=== PATIENT | male | born 1960 | race Caucasian/White ===

== ENCOUNTER 2023-09-01 07:09 | Emergency (ER) | payer OTHER, SELFPAY ==
--- NOTE | 2023-09-01 07:02 | ECG_ITS ---
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 Measurements Intervals Benedict Rate: 61 P: 51 NJ: 183 QRS: 31 QRSD: 101 T: 171 QT: 416 QTc: 421 Interpretive Statements SINUS RHYTHM POSSIBLE LEFT ATRIAL ENLARGEMENT [-0.1mV P-WAVE IN V1/V2] INCOMPLETE RIGHT BUNDLE BRANCH BLOCK [90+ ms QRS DURATION, TERMINAL R IN V1/V2, 40+ ms S IN I/aVL/V4/V5/V6] MODERATE T-WAVE ABNORMALITY, CONSIDER ANTEROLATERAL ISCHEMIA [-0.1+ mV T-WAVE IN V3-V6] MODERATE T-WAVE ABNORMALITY, CONSIDER INFERIOR ISCHEMIA [-0.1+ mV T-WAVE IN II/aVF] INTERPRETATION BASED ON A DEFAULT AGE OF 40 YEARS No previous ECG available for comparison Electronically Signed On 09-01-2023 21:25:59 CDT by Darrel Perla M.D. [id number]
--- NOTE | 2023-09-01 07:13 | XRR_ITS ---
PROCEDURE INFORMATION: Exam: XR Chest Exam date and time: 09/01/2023 7:30 AM Age: 63 years old Clinical indication: Cough and dyspnea; Additional info: Dyspnea/cough TECHNIQUE: Imaging protocol: Radiologic exam of the chest. Views: 1 view. COMPARISON: No relevant prior studies available. FINDINGS: Lungs: There may be minimal central vascular congestion. No focal consolidation is appreciated. Pleural spaces: Unremarkable. No pleural effusion. No pneumothorax. Heart/Mediastinum: The heart is enlarged. Bones/joints: Unremarkable. XR/XR chest 1V portable [id number] IMPRESSION: 1. Cardiomegaly. 2. Possible mild central vascular congestion.
[2023-09-01 07:19] LABS: ABG PCO2 24.2 mmHg (35-45); ABG PH Result 7.55 (7.35-7.45); Alveolar-Arterial Oxygen Gradi 2.5 mmHg (5-10); Arterial Blood Gas Hematocrit 46.9 % (42-52); Base Excess ABG 0.9 mmol/L (-2.0-2.0); Blood Gas Allen Test Pos; Blood Gas Operator Identificat WALCI; Blood Gas Sample Site Radial, right; Blood Gas Sample Type Arterial; Carboxyhemoglobin 0.6 %THgb (0.4-20.1); HCO3 ABG 21.3 mmol/L (22-26); HGB O2 Sat 97.5 % (95-100); Ionized Calcium Level - ABG 1.2 mmol/L (1.1-1.4); Methemoglobin 1.1 % (0.4-1.5); Oxygen Device ROOM AIR; Oxygen Saturation ABG 99.1; PO2 ABG 97.9 mmHg (80.0-100.0); PO2 FiO2 Ratio Arterial Blood 466; Potassium Level - ABG 3.4 mmol/L (3.5-5.0); Total Hemoglobin 15.3 g/dL (14-18)
[2023-09-01 07:23] LABS: Basophils # 0.1 10^3/uL (0.0-0.1); Basophils % 1.3 %; Eosinophils # 0.1 10^3/uL (0.0-0.8); Eosinophils % 1.5 %; Hematocrit 47.3 % (37-53); Lymphocytes # 2.1 10^3/uL (0.8-4.8); Lymphocytes % 27.6 %; Mean Corpuscular HGB Conc 33.2 g/dL (30-55); Mean Corpuscular Hemoglobin 31.7 pg (27-33); Mean Corpuscular Volume 95.6 fl (82-101); Mean Platelet Volume 11.7 fL (7.4-10.4); Monocytes # 0.6 10^3/uL (0.2-0.9); Monocytes % 7.8 %; Neutrophils # 4.62 10^3/uL (1.8-7.7); Neutrophils % 61.4 %; Nucleated Red Blood Cells % 0 %; Platelet Count 196 10^3/cmm (157-399); Red Blood Count 4.95 10^6/uL (3.85-5.65); Red Cell Distribution Width 13.5 % (12.1-15.1); White Blood Count 7.53 10^3/uL (3.29-11.43)
[2023-09-01 07:25] VITALS: BP 148/80; PULSE 56; RESP 18; TEMP 36.7; O2SAT 97; BMI 39.5
--- NOTE | 2023-09-01 07:28 | ED_ITS ---
HPI - General Adult 2 General: Chief complaint: General Medical Stated complaint: SOB Time Seen by Provider: 09/01/23 07:12 Source: patient Mode of arrival: ambulatory History of Present Illness: 63-year-old male presents emergency room with complaints of shortness of breath. Patient states he has been out in the heat he is repeatedly states he is dehydrated. He denies chest pain or abdominal pain. Tells me he has impaired glucose tolerance. No history of coronary artery disease. No recent trauma or falls no shortness of breath no abdominal or chest pain. Onset (ago): minute(s) Associated symptoms: Deny chest pain, confusion, cough, diaphoresis, decreased appetite, dyspnea, fevers/chills, headache(s), malaise, nausea, rash, palpitations, seizures, short of breath, syncope, vomiting or weakness Treatments prior to arrival: none Review of Systems 2 Const: Denies: fever(s), chills, malaise or diaphoresis Card: Denies: chest pain, palpitations or syncope Resp: Denies: dyspnea GI: Denies: abdominal pain, nausea or vomiting : Denies: dysuria, urinary frequency or urinary urgency Musc: Denies: neck pain or back pain Skin/Breast: Denies: rash Neuro: Denies: headache(s) or confusion Physical Exam 2 Const: GENERAL APPEARANCE: cooperative and anxious O RIENTATION/CONSCIOUSNESS: Yes awake, Yes oriented to person, Yes oriented to place and Yes oriented to time HENMT: COMMON NORMALS: normocephalic, atraumatic and hearing grossly normal bilaterally HEAD & SCALP: normocephalic and atraumatic Resp: COMMON NORMALS: normal respiratory effort, No retractions and clear to auscultation bilaterally EFFORT & INSPECTION: No able to speak in complete sentences and Yes tachypneic AUSCULTATION: clear to auscultation bilaterally Cardio: COMMON NORMALS: regular rate, regular rhythm and No murmurs present (Cardio) RATE: regular rate RHYTHM: regular rhythm GI: COMMON NORMALS: Soft to palpation and No hepatosplenomegaly present A USCULTATION: Yes normoactive bowel sounds PALPATION: Yes Soft to palpation, No Tenderness to palpation present (GI), No Guarding due to palpation present (GI) and Yes No hepatosplenomegaly present Extremity: COMMON NORMALS: normal to inspection, capillary refill normal, no clubbing, cyanosis or edema, no calf tenderness and no pedal edema Neuro: SENSORIUM/ORIENTATION: Yes oriented to person, Yes oriented to place and Yes oriented to time Skin: COMMON NORMALS: no rashes or lesions noted GENERAL SKIN EXAM: no rashes or lesions noted Course 2 Vital Signs: Vital signs: Vital Signs Temperature 98.1 F 09/01/23 07:25 Pulse Rate 63 09/01/23 09:08 Respiratory Rate 18 09/01/23 07:41 Blood Pressure 143/77 09/01/23 09:08 Pulse Oximetry 98 09/01/23 09:08 Oxygen Delivery Me thod Room Air 09/01/23 09:08 MDM - General Adult Medical Decision Making Patient presents appears to be hyperventilating EKG does not show any acute changes ABG confirms hyperventilation cardiac enzymes and EKG normal discussed findings with patient he states he has had episodes like this in the past will discharge home have him follow-up with his primary care regarding medications for anxiety. Medical Records I reviewed the patient's medical records. Lab Data I reviewed the patient's lab results. 09/01/23 07:16 09/01/23 07:16 Radiology Impressions Chest X-Ray 09/01/23 07:13 IMPRESSION: 1. Cardiomegaly. 2. Possible mild central vascular congestion. Laboratory Results WBC 7.53 10^3/uL (3.29-11.43) 09/01/23 07:16 RBC 4.95 10^6/uL (3.85-5.65) 09/01/23 07:16 Hgb 15.70 g/dL (11.27-16.99) 09/01/23 07:16 Hct 47.3 % (37-53) 09/01/23 07:16 MCV 95.6 fl (82-101) 09/01/23 07:16 MCH 31.7 pg (27-33) 09/01/23 07:16 MCHC 33.2 g/dL (30-55) 09/01/23 07:16 RDW 13.5 % (12.1-15.1) 09/01/23 07:16 Plt Count 196 10^3/cmm (157-399) 09/01/23 07:16 MPV 11.7 fL (7.4-10.4) H 09/01/23 07:16 Neut % (Auto) 61.4 % 09/01/23 07:16 Lymph % (Auto) 27.6 % 09/01/23 07:16 [place] % (Auto) 7.8 % 09/01/23 07:16 Eos % (Auto) 1.5 % 09/01/23 07:16 Baso % (Auto) 1.3 % 09/01/23 07:16 Neut # (Auto) 4.62 10^3/uL (1.8-7.7) 09/01/23 07:16 Lymph # (Auto) 2.1 10^3/uL (0.8-4.8) 09/01/23 07:16 [place] # (Auto) 0.6 10^3/uL (0.2-0.9) 09/01/23 07:16 Eos # (Auto) 0.1 10^3/uL (0.0-0.8) 09/01/23 07:16 Baso # (Auto) 0.1 10^3/uL (0.0-0.1) 09/01/23 07:16 Nucleated RBC % (auto) 0 % 09/01/23 07:16 Nucleated RBCs # 0.0 /100WBC 09/01/23 07:16 Specimen Type Arterial 09/01/23 07:08 Sample Site Radial, right 09/01/23 07:08 ABG pH 7.55 (7.35-7.45) H 09/01/23 07:08 ABG pCO2 24.2 mmHg (35-45) L 09/01/23 07:08 ABG pO2 97.9 mmHg (80.0-100.0) 09/01/23 07:08 ABG PO2/FiO2 Ratio 466 09/01/23 07:08 ABG HCO3 21.3 mmol/L (22-26) L 09/01/23 07:08 ABG O2 Saturation 99.1 09/01/23 07:08 ABG Base Excess 0.9 mmol/L (-2.0-2.0) 09/01/23 07:08 [place]um Test Pos 09/01/23 07:08 A-a O2 Gradient 2.5 mmHg (5-10) L 09/01/23 07:08 Hematocrit 46.9 % (42-52) 09/01/23 07:08 Hgb O2 Saturation 97.5 % (95-100) 09/01/23 07:08 Carboxyhemoglobin 0.6 %THgb (0.4-20.1) 09/01/23 07:08 Methemoglobin 1.1 % (0.4-1.5) 09/01/23 07:08 Total Hemoglobin 15.3 g/dL (14-18) 09/01/23 07:08 Sodium 139.0 mmol/L (131-143) 09/01/23 07:08 Potassium 3.4 mmol/L (3.5-5.0) L 09/01/23 07:08 Glucose 177.0 mg/dL (70-115) H 09/01/23 07:08 Ionized Calcium 1.2 mmol/L (1.1-1.4) 09/01/23 07:08 O2 Delivery Device Room air 09/01/23 07:08 FiO2 21.0 % 09/01/23 07:08 Teaching Music Lessons ID [place] 09/01/23 07:08 Sodium 137 mmol/L (136-145) 09/01/23 07:16 Potassium 4.3 mmol/L (3.5-5.1) 09/01/23 07:16 Chloride 100 mmol/L (98-107) 09/01/23 07:16 Carbon Dioxide 20 mmol/L (22-29) L 09/01/23 07:16 Anion Gap 21.3 (5-19) H 09/01/23 07:16 BUN 15 mg/dL (8-23) 09/01/23 07:16 Creatinine 0.9 mg/dL (0.7-1.2) 09/01/23 07:16 GFR Calculation 85.0 mL/min (90-130) L 09/01/23 07:16 Glucose 170 mg/dL (65-115) H 09/01/23 07:16 Calculated Osmolality 289 mOsm/kg (285-295) 09/01/23 07:16 Calcium 9.4 mg/dL (8.5-10.5) 09/01/23 07:16 Total Bilirubin 0.3 mg/dL (0.15-1.2) 09/01/23 07:16 AST 19 U/L (0-40) 09/01/23 07:16 ALT 24 U/L (0-41) 09/01/23 07:16 Alkaline Phosphatase 58 U/L (40-130) 09/01/23 07:16 Troponin T Baseline 15 ng/L (0-15) 09/01/23 07:16 Troponin T 120 Minute 14.46 ng/L (0-15) 09/01/23 09:21 Delta Troponin T -0.54 ABS# (0-10) L 09/01/23 09:21 NT-Pro-B Natriuret Pep 66 pg/mL (0-125) 09/01/23 07:16 Total Protein 7.8 g/dL (6.6-8.7) 09/01/23 07:16 Albumin 4.3 g/dL (3.5-5.2) 09/01/23 07:16 Globulin 3.5 g/dL (1.3-4.6) 09/01/23 07:16 All radiology interpretation(s) finalized by discharge Discharge Plan Discharge Patient Disposition: Home Clinical Impression: Hyperventilation Condition: Stable Prescriptions: No Action atorvastatin 20 mg tablet 20 mg PO QPM hydrochlorothiazide 25 mg tablet 25 mg PO QAM lisinopril 40 mg tablet 40 mg PO QPM metformin 500 mg tablet extended release 24 hr 500 mg PO BID nebivolol 10 mg tablet 10 mg PO QPM Discharge Orders: Discharge ED (Routine); Ordered 09/01/23 Ordered By: Wilfrid Nova Discharge Diet: Usual diet Discharge Activity: Resume usual activity Patient Instructions: Hyperventilation (ED), Opioid Safety, Pain Management Activity Restrictions/Additional Instructions: Thank you for choosing [facility] for your healthcare needs today. It is very important that you follow up as instructed or that you return to the Emergency Department should you have concerns or if your condition changes or worsens in any way. Follow-up with your primary care physician Coding Level of Care Code ED Management Consultant for Yolanda Panchal
[2023-09-01] MEDS: sodium chloride 0.9% 1,000 ML 999 ML IV (07:33)
[2023-09-01 07:41] VITALS: BP 148/80; PULSE 57; RESP 18; O2SAT 96
[2023-09-01 07:46] LABS: Troponin(5th) Baseline 15 ng/L (0-15)
[2023-09-01 07:50] LABS: Alanine Aminotransferase 24 U/L (0-41); Albumin Level 4.3 g/dL (3.5-5.2); Alkaline Phosphatase 58 U/L (40-130); Blood Urea Nitrogen 15 mg/dL (8-23); Calcium 9.4 mg/dL (8.5-10.5); Carbon Dioxide 20 mmol/L (22-29); Chloride 100 mmol/L (98-107); Creatinine Clr Calc Pharmacy 103.4604; Globulin 3.5 g/dL (1.3-4.6); Glucose 170 mg/dL (65-115); Osmolality Calculated 289 mOsm/kg (285-295); Sodium 137 mmol/L (136-145); Total Bilirubin 0.3 mg/dL (0.15-1.2); Total Protein 7.8 g/dL (6.6-8.7)
[2023-09-01 08:04] LABS: Anion Gap 21.3 (5-19); Aspartate Amino Transferase 19 U/L (0-40); Potassium 4.3 mmol/L (3.5-5.1)
[2023-09-01 09:08] VITALS: BP 143/77; PULSE 63; O2SAT 98
--- NOTE | 2023-09-01 09:12 | ECG_ITS ---
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 Measurements Intervals [place] Rate: 58 P: 35 AL: 189 QRS: 14 QRSD: 101 T: 153 QT: 422 QTc: 417 Interpretive Statements SINUS BRADYCARDIA POSSIBLE LEFT ATRIAL ENLARGEMENT [-0.1mV P-WAVE IN V1/V2] INCOMPLETE RIGHT BUNDLE BRANCH BLOCK [90+ ms QRS DURATION, TERMINAL R IN V1/V2, 40+ ms S IN I/aVL/V4/V5/V6] MODERATE T-WAVE ABNORMALITY, CONSIDER ANTEROLATERAL ISCHEMIA [-0.1+ mV T-WAVE IN V3-V6] Compared to ECG 09/01/2023 07:02:01 Sinus rhythm no longer present T-wave abnormality still present Possible ischemia still present Electronically Signed On 09-01-2023 21:36:24 CDT by Darrel Perla M.D. [id number]
[2023-09-01 09:43] LABS: Troponin 5 2HR 14.46 ng/L (0-15)
[2023-09-01 09:44] LABS: Troponin 5 2HR Delta -0.54 ABS# (0-10)
[2023-09-01 09:49] LABS: NT Pro B Type Natriuretic Pept 66 pg/mL (0-125)
== END 2023-09-01 10:05 | disposition home or self-care (01) ==
PROVIDERS: Emergency Provider Family Medicine
DX: R06.4 Hyperventilation (principal); Z79.84 Long term (current) use of oral hypoglycemic drugs
CPT/HCPCS: 36600; 71045; 80051; 80053; 82330; 82805; 83880; 84484; 85025; 93005; 99285; J7030